=== PATIENT | female | born 1955 | race Caucasian/White ===

== ENCOUNTER 2017-12-19 15:55 | Outpatient (CLI) | payer OTHER | END 2017-12-19 15:56 | disposition home or self-care (01) | LOC: BICMAMMO 15:55 | PROVIDERS: ATTEND Family Medicine | DX: Z12.31 Encounter for screening mammogram for malignant neoplasm of breast (principal) | CPT/HCPCS: 77063; 77067 ==

== ENCOUNTER 2018-08-02 13:20 | Outpatient (CLI) | payer OTHER ==
--- NOTE | 2018-08-02 18:22 | RAD ---
2 VIEWS LUMBAR SPINE: Date: 08/02/18 COMPARISON: 05/22/18. HISTORY: Low back pain. FINDINGS: Two views of the lumbosacral spine show the patient to be status post posterior fusion of L4-S1 with bilateral pedicle screws. No perihardware lucency is seen. There is worsening of the scoliotic curvat ure of the upper lumbar spine. The intervertebral discs are narrowed and small to moderate osteophyte s are seen throughout the lumbar spine. IMPRESSION: Worsening of degenerative change and scoliotic curvature of the upper lumbar spine. POS: [facility]
== END 2018-08-02 13:21 | disposition home or self-care (01) ==
LOC: BICRAD 13:20
PROVIDERS: ATTEND Orthopaedic Surgery
DX: M54.5 Low back pain (principal); M47.896 Other spondylosis, lumbar region; M41.9 Scoliosis, unspecified
CPT/HCPCS: 72100

== ENCOUNTER 2018-10-28 09:54 | Outpatient (CLI) | payer OTHER ==
--- NOTE | 2018-10-28 13:52 | CT ---
NONCONTRAST CT LUMBAR SPINE: Date: 10/28/18 HISTORY: Back pain for many years. Patient is having tingling and numbness in right lower extremity, with weak ness in left lower extremity. History of prior back surgery. FINDINGS: There is a small amount of herniation of fat at the posteromedial aspect of the right lung base. Mini mal atelectasis is present at each lung base. Visualized retroperitoneal structures otherwise demonstrate a grossly normal nonenhanced CT appearanc e. Multilevel degenerative changes are seen throughout the lumbar spine. There is left convex scoliosis of the thoracolumbar spine. Postsurgical changes related to posterior fusion are present at the L4-5 and L5-S1 levels with bipedicular screws and posterior rods transfixing these levels with associated intradiscal prosthesis in place. T11-12 and T12-L1 Levels: There is vacuum phenomenon and intervertebral disc with severe narrowing o f the intervertebral discs. Minimal disc osteophyte complexes are present, without significant narrow ing of the central spinal canal. The neural foramina are patent. L1-2 Level: There is loss of intervertebral disc height. End plate degenerative changes are present and there is vacuum phenomenon seen intervertebral discs. Disc osteophyte complex is present. This re sults in slight effacement of the ventral aspect of the thecal sac. There is mild to moderate right-s ided neural foraminal narrowing. The left neural foramen is patent. L2-3 Level: There is loss of intervertebral disc height. Vacuum phenomenon in the intervertebral dis c. There are facet hypertrophic changes, greater on the right. There is a disc osteophyte complex pre sent. Findings result in mild narrowing of the central spinal canal, as well as narrowing of the righ t lateral recess. There is mild to moderate right-sided neural foraminal narrowing. The left neural f oramen is patent. L3-4 Level: There is disc osteophyte complex present. There are end plate degenerative changes with loss of intervertebral disc height and vacuum phenomenon in the intervertebral disc. There are facet degenerative changes present. There does appear to be mild ligamentous thickening. There is broad bas ed disc osteophyte complex noted. Findings result in mild to moderate narrowing of the central spinal canal. There is mild to moderate left-sided neural foraminal narrowing. There is minimal right-sided neural foraminal narrowing present. L4-5 Level: There are postsurgical changes at this level related to posterior fusion with intradisca l prosthesis in place. There is limited evaluation of the central spinal canal due to streak artifact , but the central spinal canal, as well as each neural foramen, do appear patent at this level. No si gnificant posterior osteophyte formation is appreciated. Central spinal canal posterior to the L5 roxi tebral body is obscured, not well evaluated. L5-S1 Level: Due to significant artifact, the central spinal canal and neural foramina are not well assessed. However, there does not appear to be significant bony encroachment on either neural foramen or the central spinal canal at this level. Paravertebral soft tissues have a normal appearance. IMPRESSION: 1. Multilevel disc degenerative changes throughout the lumbar spine, including severe loss of interv ertebral disc height at all levels of the visualized lower thoracic, as well as involving the lumbar spine, with vacuum phenomenon seen in the intervertebral discs. 2. Postsurgical changes related to posterior fusion of L4 through S1 levels. No hardware complicatio n is visualized. There is limited assessment of the central spinal canal at the L5-S1 level, includin g limited assessment of the neural foramina, although no definitive significant bony encroachment is able to be visualized. Additional mild degrees of neural foraminal narrowing are seen within the lumb ar spine with mild to moderate right-sided neural foraminal narrowing at the L1-2 and L2-3 levels. 3. Left convex scoliosis thoracolumbar spine. 4. Bilateral sacroiliac joint osteoarthritis. POS: [facility]
== END 2018-10-28 09:55 | disposition home or self-care (01) ==
LOC: BICCT 09:54
PROVIDERS: ATTEND Orthopaedic Surgery
DX: M54.5 Low back pain (principal); T84.498S Other mechanical complication of other internal orthopedic devices, implants and grafts, sequela; M47.896 Other spondylosis, lumbar region; M41.85 Other forms of scoliosis, thoracolumbar region; M53.3 Sacrococcygeal disorders, not elsewhere classified
CPT/HCPCS: 72131

== ENCOUNTER 2018-12-05 14:12 | Outpatient (CLI) | payer OTHER ==
[2018-12-05 16:56] LABS: Hemoglobin 13.3 g/dL (12.0-16.0); Mean Corpuscular HGB CONC 33.1 g/dL (32.0-36.0); Mean Corpuscular Hemoglobin 30.8 pg (27.0-31.0); Mean Corpuscular Volume 93.3 fL (78.0-98.0); Mean Platelet Volume 8.2 fL (7.4-10.4); Platelet Count 210 thou/uL (130-400); RBC Distribution Width 11.2 % (11.5-14.5); Red Blood Cell (RBC) Count 4.32 mill/uL (4.20-5.40); White Blood Cell (WBC) Count 5.3 thou/uL (4.8-10.8)
[2018-12-05 17:00] LABS: INR-International Normal Ratio 0.9; PTT 23.8 SEC (22.9-36.1); Prothrombin Time 12.2 SEC (12.0-14.7)
[2018-12-05 17:20] LABS: Anion Gap 12 mmol/L (10-20); BUN (Urea Nitrogen) 19 mg/dL (9.8-20.1); Calc. Creatinine Clearance 0 mL/min (70-130); Calcium 9.5 mg/dL (7.8-10.44); Carbon Dioxide 23 mmol/L (23-31); Chloride 108 mmol/L (98-107); Estimated GFR-MDRD 83; Glucose 103 mg/dL (80-115); Potassium 4.1 mmol/L (3.5-5.1); Sodium 139 mmol/L (136-145)
== END 2018-12-05 14:13 | disposition home or self-care (01) ==
LOC: LABBT 14:12
PROVIDERS: ATTEND Orthopaedic Surgery
DX: M54.5 Low back pain (principal); T84.498S Other mechanical complication of other internal orthopedic devices, implants and grafts, sequela
CPT/HCPCS: 80048; 85027; 85610; 85730; 86850; 86900; 86901

== ENCOUNTER 2018-12-05 14:45 | Outpatient (CLI) | payer OTHER ==
--- NOTE | 2018-12-05 15:09 | RAD ---
TWO VIEWS CHEST: Comparison: None. History: Dyspnea. FINDINGS: Two views of the chest show normal sized cardiomediastinal silhouette. There is no evidence of consol idation, mass, or pleural effusion. The bones are unremarkable. IMPRESSION: No evidence of acute cardiopulmonary disease. POS: [facility]
== END 2018-12-05 14:46 | disposition home or self-care (01) ==
LOC: RAD 14:45
PROVIDERS: ATTEND Internal Medicine Pulmonary Disease
DX: R06.00 Dyspnea, unspecified (principal)
CPT/HCPCS: 71046; 80048; 85027; 85610; 85730; 86850; 86900; 86901

== ENCOUNTER 2018-12-06 06:19 | Inpatient (IN) | payer OTHER ==
[2018-12-06] MEDS ORDERED: Thrombin 5000 UNITS/5 ML VIAL ONE (06:54)
[2018-12-06] MEDS ORDERED: Bupivacaine HCl 0.5%/Epinephrine 1:200,000/PF 30 ml Vial ONE (06:54)
[2018-12-06] MEDS ORDERED: Sodium Chloride 0.9% 10 ML ONE (07:04)
[2018-12-06] MEDS ORDERED: Fentanyl 250 MCG/5 ML VIAL ONE (07:11)
[2018-12-06] MEDS ORDERED: Fentanyl 100 MCG/2 ML VIAL ONE (11:38)
[2018-12-06] MEDS ORDERED: HYDROmorphone 2 MG/ML VIAL ONE (11:52)
--- NOTE | 2018-12-06 12:21 | RAD ---
INTRAOPERATIVE FLUOROSCOPY: HISTORY: Hardware removal. COMPARISON: None. EXPOSURE: 19.2 seconds 30.61 mGy FINDINGS: Three fluoroscopic images demonstrate a unilateral transpedicular screw at what is presumed to be the L4 and L5 levels. There appears to be a prosthesis at L4-L5 and at L5-S1. IMPRESSION: Intraprocedural fluoroscopy, as above. POS: [facility]
[2018-12-06] MEDS ORDERED: Lidocaine 1% PF 5 ML VIAL ONE (13:24)
[2018-12-06] MEDS ORDERED: Ondansetron PF 4 MG/2 ML Vial ONE (13:24)
[2018-12-06] MEDS ORDERED: PHENYLEPHRINE-NS 100 MCG/ML 10 ML SYRINGE ONE (13:24)
[2018-12-06] MEDS ORDERED: PROPOFOL 200 MG/20 ML VIAL ONE (13:24)
[2018-12-06] MEDS ORDERED: ePHEDrine 50 MG/ML VIAL ONE (13:24)
[2018-12-06] MEDS ORDERED: Rocuronium Bromide 10 MG/ML (10ML VIAL) ONE (13:24)
[2018-12-06] MEDS ORDERED: Ketorolac Tromethamine 30 MG/ML VIAL ONE (13:24)
[2018-12-06] MEDS ORDERED: Acetaminophen 325 MG TAB PO PRN (13:34)
[2018-12-06] MEDS ORDERED: Morphine 4 MG/ML VIAL SLOW IVP PRN (13:35)
[2018-12-06] MEDS ORDERED: diphenhydrAMINE 25 MG CAP PO PRN (13:35)
[2018-12-06] MEDS ORDERED: traMADol HCl 50 MG TAB PO PRN (13:36)
[2018-12-06] MEDS ORDERED: Mometasone 100 MCG HFA INHALER INH PRN (13:37)
[2018-12-06 15:57] VITALS: BMI 44.6
[2018-12-06] MEDS: HYDROcodone/Acetaminophen 7.5/325 mg Tablet PO PRN (17:04)
[2018-12-07] MEDS: HYDROcodone/Acetaminophen 7.5/325 mg Tablet PO PRN ×2 (04:39→12:58)
[2018-12-07] MEDS ORDERED: Multivit, Therapeutic 1 TAB PO SCH (09:00)
[2018-12-07] MEDS ORDERED: Lisinopril 5 MG TAB PO SCH (09:00)
[2018-12-07 15:51] VITALS: BP 177/99; TEMP 99.2
== END 2018-12-07 16:23 | disposition home or self-care (01) | DRG 460 ==
LOC: SURG A 06:19 → SJJU 13:27
PROVIDERS: ADMIT Orthopaedic Surgery; ATTEND Orthopaedic Surgery
PROC: 0SP304Z Removal of Internal Fixation Device from Lumbosacral Joint, Open Approach (ICD-10-PCS; principal; 2018-12-06)
PROC: 0SG00K1 Fusion of Lumbar Vertebral Joint with Nonautologous Tissue Substitute, Posterior Approach, Posterior Column, Open Approach (ICD-10-PCS; 2018-12-06)
DX: T84.84XA Pain due to internal orthopedic prosthetic devices, implants and grafts, initial encounter (principal); M96.0 Pseudarthrosis after fusion or arthrodesis; Z68.41 Body mass index [BMI] 40.0-44.9, adult; I10 Essential (primary) hypertension; J45.909 Unspecified asthma, uncomplicated; E66.9 Obesity, unspecified; E78.5 Hyperlipidemia, unspecified; Y83.1 Surgical operation with implant of artificial internal device as the cause of abnormal reaction of the patient, or of later complication, without mention of misadventure at the time of the procedure; Z88.2 Allergy status to sulfonamides; Z88.8 Allergy status to other drugs, medicaments and biological substances; Z91.041 Radiographic dye allergy status
CPT/HCPCS: 71046; 72100; 76000; 80048; 85027; 85610; 85730; 86850; 86900; 86901; 93005; 93010; C1713; C1768; J0670; J1170; J1885; J2001; J2405; J2704; J3010; J3490

== ENCOUNTER 2019-02-03 12:39 | Outpatient (CLI) | payer OTHER ==
--- NOTE | 2019-02-03 12:56 | RAD ---
XR Chest Pa Lat @ [facility] HISTORY: Dyspnea COMPARISON: 11/27/2018 FINDINGS: The heart size is normal. The lungs are well expanded without focal areas of consolidation, pneumothorax or pleural effusions. IMPRESSION: No radiographic evidence of acute cardiopulmonary process.
== END 2019-02-03 12:40 | disposition home or self-care (01) ==
LOC: RAD 12:39
PROVIDERS: ATTEND Internal Medicine Pulmonary Disease
DX: R06.00 Dyspnea, unspecified (principal)
CPT/HCPCS: 71046

== ENCOUNTER 2020-02-13 11:50 | Outpatient (CLI) | payer OTHER ==
--- NOTE | 2020-02-13 13:25 | MMO ---
Bilateral MAMMO Bilat Screen [facility]. CLINICAL HISTORY: Patient is 64 years old and is seen for screening. The patient has no family history of breast cancer. The patient has no personal history of cancer. VIEWS: The views performed were: bilateral craniocaudal with tomosynthesis and bilateral mediolateral oblique with tomosynthesis. FILMS COMPARED: The present examination has been compared to prior imaging studies performed at [facility] on 12/19/2017, and at [facility] on 06/01/2014, 06/10/2015 and 07/07/2016. This study has been interpreted with the assistance of computer-aided detection. MAMMOGRAM FINDINGS: The breasts are almost entirely fat. There are no suspicious masses, suspicious calcifications, or new areas of architectural distortion. IMPRESSION: THERE IS NO MAMMOGRAPHIC EVIDENCE OF MALIGNANCY. A ROUTINE FOLLOW-UP MAMMOGRAM IN 1 YEAR IS RECOMMENDED. THE RESULTS OF THIS EXAM WERE SENT TO THE PATIENT. ACR BI-RADS Category 1 - Negative MAMMOGRAPHY NOTE: 1. A negative mammogram report should not delay a biopsy if a dominant of clinically suspicious mass is present. 2. Approximately 10% to 15% of breast cancers are not detected by mammography. 3. Adenosis and dense breasts may obscure an underlying neoplasm. Reported by: DALLAS CARRILLO MD Electonically Signed: [id number]
== END 2020-02-13 11:51 | disposition home or self-care (01) ==
LOC: BICMAMMO 11:50
PROVIDERS: ATTEND Family Medicine
DX: Z12.31 Encounter for screening mammogram for malignant neoplasm of breast (principal)
CPT/HCPCS: 77063; 77067

== ENCOUNTER 2021-02-15 15:31 | Outpatient (CLI) | payer MEDICARE | END 2021-02-15 15:32 | disposition home or self-care (01) | LOC: BICMAMMO 15:31 | PROVIDERS: ATTEND Family Medicine | DX: Z12.31 Encounter for screening mammogram for malignant neoplasm of breast (principal) | CPT/HCPCS: 77063; 77067 ==

== ENCOUNTER 2021-11-01 13:25 | Outpatient (CLI) | payer MEDICARE | END 2021-11-01 13:26 | disposition home or self-care (01) | LOC: SCSMRI 13:25 | PROVIDERS: ATTEND Specialist | DX: M51.16 Intervertebral disc disorders with radiculopathy, lumbar region (principal); M47.26 Other spondylosis with radiculopathy, lumbar region; M47.27 Other spondylosis with radiculopathy, lumbosacral region; Z98.890 Other specified postprocedural states | CPT/HCPCS: 72148 ==

== ENCOUNTER 2022-04-19 13:38 | Outpatient (CLI) | payer MEDICARE | END 2022-04-19 13:39 | disposition home or self-care (01) | LOC: BICMAMMO 13:38 | PROVIDERS: ATTEND Family Medicine | DX: Z12.31 Encounter for screening mammogram for malignant neoplasm of breast (principal) | CPT/HCPCS: 77063; 77067 ==

== ENCOUNTER 2023-06-18 11:49 | Outpatient (CLI) | payer OTHER | END 2023-06-18 11:50 | disposition home or self-care (01) | LOC: BICMAMMO 11:49 | PROVIDERS: ATTEND Family Medicine | DX: Z12.31 Encounter for screening mammogram for malignant neoplasm of breast (principal) | CPT/HCPCS: 77063; 77067 ==

== ENCOUNTER 2025-05-18 11:43 | Outpatient (CLI) | payer OTHER | END 2025-05-18 11:44 | disposition home or self-care (01) | LOC: BICRAD 11:43 | PROVIDERS: ATTEND Family Medicine | DX: M79.671 Pain in right foot (principal) ==

== ENCOUNTER 2025-06-22 10:53 | Outpatient (CLI) | payer OTHER | END 2025-06-22 10:54 | disposition home or self-care (01) | LOC: BICMAMMO 10:53 | PROVIDERS: ATTEND Family Medicine | DX: Z12.31 Encounter for screening mammogram for malignant neoplasm of breast (principal) | CPT/HCPCS: 77063; 77067 ==

== ENCOUNTER 2025-08-21 11:01 | Outpatient (CLI) | payer OTHER | END 2025-08-21 11:02 | disposition home or self-care (01) | LOC: MRI 11:01 | PROVIDERS: ATTEND Nurse Practitioner Family | DX: M54.16 Radiculopathy, lumbar region (principal); M48.05 Spinal stenosis, thoracolumbar region; M48.061 Spinal stenosis, lumbar region without neurogenic claudication; M48.07 Spinal stenosis, lumbosacral region | CPT/HCPCS: 72148 ==